=== PATIENT | female | born 1980 | race Caucasian/White ===

== ENCOUNTER 2017-08-23 08:45 | Emergency (ER) | payer SELFPAY ==
[~2017-08-23] VITALS: Ht 152.4 cm; Wt 56.9 kg
[2017-08-23 08:57] VITALS: BP_SYST 183; BP_DIAS 101; BP_DIAS 110
--- NOTE | 2017-08-23 09:04 | NUR ---
AMBULATES TO BED 12
--- NOTE | 2017-08-23 09:10 | NUR ---
PATIENT PRESENTS TO ED WITH FELL IN SHOWER, NO SEIZURE PER PT----INJURE RIGHT UPPER RIBS, DISCOLORATION NOTED TENDERNESS UNDER RIGHT BREAST---NO FLAIL PALPATED, REMAINS SYMMETRIC RISE AND FALL UPON RESP. FULL CLEAR SPEECH, PT NOT SPLINTING . DENIES N/V/D; SKIN IS PINK/WARM/DRY; AAOX4 WITH EVEN AND STEADY GAIT; LUNGS CLEAR BL; HR EVEN AND REGULAR; PT DENIES ANY FEVER, CP, SOB, OR COUGH AT THIS TIME; PATIENT STATES PAIN OF 10/10 AT THIS TIME; VSS; PATIENT POSITIONED FOR COMFORT; HOB ELEVATED; BEDRAILS UP X2; BED DOWN. ER MD MADE AWARE OF PT STATUS.
[2017-08-23] MEDS ORDERED: traMADol 50 MG TAB PO ONE (09:40)
[2017-08-23] MEDS ORDERED: HYDROcodone/APAP 5/325 MG 1 TAB TAB PO ONE (09:50)
--- NOTE | 2017-08-23 09:55 | NUR ---
MEDICATED WRITTEN FOR PAIN CONTROL--WILL CONTINUE TO OBSERVE ICE PACK PROVIDED
[2017-08-23 10:52] VITALS: BP 158/90
== END 2017-08-23 10:52 | disposition home or self-care (01) ==
LOC: MED 08:45
DX: S20.211A Contusion of right front wall of thorax, initial encounter (principal); G40.909 Epilepsy, unspecified, not intractable, without status epilepticus; R03.0 Elevated blood-pressure reading, without diagnosis of hypertension; W18.2XXA Fall in (into) shower or empty bathtub, initial encounter; Y93.E1 Activity, personal bathing and showering; Y92.091 Bathroom in other non-institutional residence as the place of occurrence of the external cause; Y99.8 Other external cause status
CPT/HCPCS: 71045; 81002; 81025; 99283; Q0092